=== PATIENT | male | born 1985 | race Caucasian/White ===

== ENCOUNTER 2019-12-09 14:08 | Emergency (ER) | payer OTHER ==
[~2019-12-09] VITALS: Ht 182.9 cm; Wt 151.8 kg
[~2019-12-09 14:08] MED LIST: ALBU90OI INH; ASPI325 PO; AZIT250 PO; BENZ100A PO; Crutch1 EACH MISC; DIAZ5 PO; FAMO20 PO; IBUP200 PO; IBUP400 PO; IBUP800; IBUP800 PO; INDO50 PO; LOPE2C PO; NAPR500 PO; NAPR550 PO; OXYACE5T PO; PENVK500 PO; Percocet 5-3251 EACH PO; Prednisone20 MG PO; VARE1 PO; Valium5 MG PO; Veetids 500500 MG PO; Zithromax250 MG PO; Zofran4 MG PO; Zofran8 MG PO
[2019-12-09] MEDS ORDERED: Robaxin-750750 MG PO (16:11)
[2019-12-09] MEDS ORDERED: LIDO700A20 TOP (16:11)
== END 2019-12-09 16:19 | disposition home or self-care (01) ==
LOC: ER 14:08
DX: M54.5 Low back pain (principal); F17.210 Nicotine dependence, cigarettes, uncomplicated
CPT/HCPCS: 99283

== ENCOUNTER 2020-10-08 05:32 | Emergency (ER) | payer OTHER ==
[~2020-10-08] VITALS: Ht 182.9 cm; Wt 158.8 kg
[~2020-10-08 05:32] MED LIST changes: +LIDO700A20 TOP; +Robaxin-750750 MG PO
== END 2020-10-08 07:50 | disposition home or self-care (01) ==
LOC: ER 05:32
DX: S16.1XXA Strain of muscle, fascia and tendon at neck level, initial encounter (principal); S09.90XA Unspecified injury of head, initial encounter; F17.210 Nicotine dependence, cigarettes, uncomplicated; V67.5XXA Driver of heavy transport vehicle injured in collision with fixed or stationary object in traffic accident, initial encounter; Y92.410 Unspecified street and highway as the place of occurrence of the external cause
CPT/HCPCS: 70450; 72125; 99284-25

== ENCOUNTER 2020-11-16 14:49 | Emergency (ER) | payer OTHER ==
[~2020-11-16] VITALS: Ht 182.9 cm; Wt 158.8 kg
[2020-11-16 15:20] LABS: BASOPHILS ABSOLUTE AUTO 0.04 K/mm3 (0.00-0.23); BASOPHILS PERCENT AUTO 1 % (0-2); EOSINOPHILS ABSOLUTE AUTO 0.05 K/mm3 (0.00-0.68); EOSINOPHILS PERCENT AUTO 1 % (0-6); Hemoglobin 18.5 g/dL (13.5-17.5); IMMATURE GRAN ABSOLUTE AUTO 0.04 K/mm3 (0.00-0.10); IMMATURE GRAN PERCENT AUTO 1 % (0-1); LYMPHOCYTES ABSOLUTE AUTO 0.84 K/mm3 (0.84-5.20); LYMPHOCYTES PERCENT AUTO 10 % (21-46); MONOCYTES ABSOLUTE AUTO 0.53 K/mm3 (0.16-1.47); MONOCYTES PERCENT AUTO 6 % (4-13); Mean Corpuscular HGB 30.5 pg (26.0-34.0); Mean Corpuscular HGB Conc 32.9 g/dL (31.5-36.5); Mean Corpuscular Volume 93 fL (80-100); Mean Platelet Volume 9.8 fL (9.1-12.4); NEUTROPHILS PERCENT AUTO 83 % (41-73); Platelet Count 178 K/mm3 (150-400); RDW Coefficient Variation 12.6 % (11.7-14.2); RDW Standard Deviation 42.9 fL (35.1-46.3); Red Blood Cell Count 6.06 M/mm3 (4.30-5.90)
[2020-11-16 15:21] LABS: Hematocrit 56.3 % (37.0-53.0)
[2020-11-16 15:38] LABS: Alanine Aminotransfer (ALT/SGP 35 U/L (12-78); Albumin, Blood 3.5 g/dL (3.4-5.0); Albumin/Globulin Ratio 0.9 (0.8-1.8); Alk Phos 106 U/L (50-136); Anion Gap 7 mmol/L (6-16); Aspartate Aminotrans (AST/SGOT 16 U/L (12-37); Bilirubin, Total 0.4 mg/dL (0.1-1.0); Blood Urea Nitrogen 11 mg/dL (8-24); Bun/Creatinine Ratio 15.5 (12.0-20.0); CO2, Blood 24 mmol/L (21-32); Calcium, Blood 8.6 mg/dL (8.5-10.1); Chloride, Blood 106 mmol/L (98-108); Creatinine, Blood 0.71 mg/dL (0.60-1.20); Globulin, Blood 3.9 g/dL (2.2-4.0); Glomerular Filtration Rate >60 (60-); Glucose, Blood 138 mg/dL (70-99); Potassium, Blood 4.1 mmol/L (3.5-5.5); Sodium, Blood 137 mmol/L (136-145); Total Protein, Blood 7.4 g/dL (6.4-8.2); Troponin I <0.015 ng/mL (0.000-0.040)
== END 2020-11-16 16:58 | disposition home or self-care (01) ==
LOC: ER 14:49
PROVIDERS: Physician Assistant
DX: B34.9 Viral infection, unspecified (principal); Z20.822 Contact with and (suspected) exposure to COVID-19
CPT/HCPCS: 71045; 80053; 84484; 85025; 93005; 93010; 99284-25